=== PATIENT | male | born 1960 | race Caucasian/White ===

== ENCOUNTER → 2020-08-16 | Outpatient (REF) | payer BC ==
[2020-08-16 13:09] LABS: APPEARANCE, URINE CLEAR (CLEAR); BACTERIA, URINE AUTO NEGATIVE (NEGATIVE); BILIRUBIN, URINE AUTO NEGATIVE (NEGATIVE); BLOOD, URINE BLOOD NEGATIVE (NEGATIVE); COLOR, URINE YELLOW (YELLOW); GLUCOSE, URINE (UA) AUTO 3+ mg/dL (NEGATIVE); KETONE, URINE AUTO TRACE mg/dL (NEGATIVE); LEUKOCYTE ESTERASE, URINE AUTO NEGATIVE (NEGATIVE); NITRITE, URINE AUTO NEGATIVE (NEGATIVE); PROTEIN, URINE AUTO NEGATIVE (NEGATIVE); RBC, URINE AUTO 0 /HPF (0-3); SPECIFIC GRAVITY URINE AUTO 1.021 (1.002-1.035); SQUAMOUS EPITHELIAL CELL UR AU 0 /HPF (0-6); UROBILINOGEN, URINE AUTO 0.2 mg/dL (0.0-2.0); WBC, URINE AUTO 0 /HPF (0-3)
== END ==
LOC: M SMT 12:34
PROVIDERS: ATTEND Nurse Practitioner Women's Health
DX: Z87.440 Personal history of urinary (tract) infections (principal)

== ENCOUNTER → 2020-09-01 | Outpatient (REF) | payer BC | LOC: M SMT 17:20 | PROVIDERS: ATTEND Urology | DX: N42.32 Atypical small acinar proliferation of prostate (principal) | CPT/HCPCS: 88342; G0416 ==

== ENCOUNTER → 2020-09-01 | Outpatient (CLI) | payer BC ==
--- NOTE | 2020-09-01 15:05 | REPPI ---
INDICATION: ELEVATED PSA. COMPARISON: None. TECHNIQUE: Transrectal prostate ultrasound performed, with ultrasound guidance provided for Dr. Paz who performed ultrasound-guided biopsy. FINDINGS: Prostate measures 4.8 x 2.3 x 4.8 cm, total volume 27.5 mL. Echotexture is heterogeneous with scattered tiny cysts and calcifications. No focal mass is seen. Seminal vesicles appear symmetrical. IMPRESSION: Prostate ultrasound as above, ultrasound guidance was provided for Dr. Paz who performed ultrasound-guided biopsy of the prostate. <Electronically signed by Dillon Montes > 09/01/20 [id number]
== END ==
LOC: M SMT PRO 13:02
PROVIDERS: ATTEND Urology
DX: R97.20 Elevated prostate specific antigen [PSA] (principal)

== ENCOUNTER 2022-05-11 06:46 | Day surgery (SDC) | payer BC ==
[~2022-05-11] VITALS: Ht 182.9 cm; Wt 91.6 kg
[~2022-05-11 06:46] MED LIST: ASCO500T PO; ATOR1TAB19 PO; CALC500T52 PO; CENT1TAB PO; CINN500C15 PO; COMPTAB PO; HM C500T4 PO; LOSA50TA28 PO; METO1TAB7 PO; PROBCAP14 PO; SEMA2PEN SC; VITA1CAP4 PO; XARE20TA PO; XIGD1TAB3 PO
[2022-05-11] MEDS ORDERED: LR 1,000 ML IV SCH (07:30)
[2022-05-11] MEDS ORDERED: GENTAMICIN 100 MG in IV 1 EA IV ONE (08:00)
[2022-05-11] MEDS ORDERED: INSULIN LISPRO (NovoLOG) PER UNIT SC PRN (08:05)
[2022-05-11] MEDS ORDERED: fentaNYL 100 MCG/2 ML INJECTION As Ordered ONE (08:23)
[2022-05-11] MEDS ORDERED: MIDAZOLAM INJ 2MG/2ML VIAL As Ordered ONE (08:23)
[2022-05-11] MEDS ORDERED: LIDOCAINE 2% 100MG/5ML SDV (FOR ANES.) As Ordered ONE (08:24)
[2022-05-11] MEDS ORDERED: propofoL 200 MG/20 ML VIAL As Ordered ONE (08:24)
[2022-05-11 08:48] VITALS: BP 101/54
[2022-05-11] MEDS ORDERED: CIPR-249 PO (08:52)
== END 2022-05-11 09:20 | disposition home or self-care (01) ==
LOC: M SDC 06:46
PROVIDERS: ATTEND Urology
DX: C61 Malignant neoplasm of prostate (principal); I48.91 Unspecified atrial fibrillation; G47.30 Sleep apnea, unspecified; I10 Essential (primary) hypertension; E78.5 Hyperlipidemia, unspecified; E11.9 Type 2 diabetes mellitus without complications; Z79.899 Other long term (current) drug therapy
CPT/HCPCS: 55700; G0416; J1580; J1815; J2250; J3010

== ENCOUNTER → 2023-05-02 | Outpatient (CLI) | payer BC ==
[~2023-05-02] MED LIST changes: +CIPR-249 PO; +ISOVUE-370 76% 100ML VIAL As Ordered ONE
== END ==
LOC: M RAD 09:05
PROVIDERS: ATTEND Urology
DX: C61 Malignant neoplasm of prostate (principal)
CPT/HCPCS: 74177; 78306; A9503; Q9967

== ENCOUNTER 2023-06-07 12:45 | Inpatient (IN) | payer BC ==
[~2023-06-07] VITALS: Ht 188 cm; Wt 84.2 kg
[~2023-06-07 12:45] MED LIST changes: -ISOVUE-370 76% 100ML VIAL As Ordered ONE
[2023-07-02] MEDS ORDERED: INSU100I59 SQ (10:44)
[2023-07-02] MEDS ORDERED: XARE10TA PO (10:57)
[2023-07-16] MEDS ORDERED: B-12100010 PO (13:32)
[2023-07-16] MEDS ORDERED: METO1TAB33 PO (13:32)
[2023-07-16] MEDS ORDERED: HOME MED LIST COMPLETE! XX SCH (13:35)
[2023-07-16] MEDS ORDERED: DEXTROSE 50% 50ML SYRINGE IV PRN (16:40)
[2023-07-16] MEDS ORDERED: GLUCAGON INJ 1MG VIAL SC PRN (16:40)
[2023-07-16] MEDS ORDERED: ACETAMINOPHEN TAB 650MG DOSE (2X325MG) PO PRN (16:40)
[2023-07-16] MEDS ORDERED: GLUCOSE 4GM CHEW TABLET PO PRN (16:40)
[2023-07-16] MEDS ORDERED: ONDANSETRON 4MG 2ML VIAL IV PRN ×2 (16:40→22:40)
[2023-07-16] MEDS ORDERED: HYDROmorphone HCL 2MG/ML 1ML VIAL As Ordered ONE (18:05)
[2023-07-16] MEDS ORDERED: ROCURONIUM BROMIDE 50MG/5ML VIAL As Ordered ONE (18:05)
[2023-07-16] MEDS ORDERED: MIDAZOLAM INJ 2MG/2ML VIAL As Ordered ONE (18:05)
[2023-07-16] MEDS ORDERED: fentaNYL 100 MCG/2 ML INJECTION As Ordered ONE (18:05)
[2023-07-16] MEDS ORDERED: SUGAMMADEX SODIUM 500 MG/5 ML VIAL (BRIDION) As Ordered ONE (18:06)
[2023-07-16] MEDS ORDERED: propofoL 200 MG/20 ML VIAL As Ordered ONE (18:06)
[2023-07-16] MEDS ORDERED: LIDOCAINE 2% 100MG/5ML SDV (FOR ANES.) As Ordered ONE (18:06)
[2023-07-16] MEDS ORDERED: ONDANSETRON 4MG 2ML VIAL As Ordered ONE (18:07)
[2023-07-16] MEDS ORDERED: ACETAMINOPHEN 1000MG 100ML IV BAG As Ordered ONE (18:12)
[2023-07-16] MEDS: ceFAZolin SOD 2 GM in IV 1 EA IV ONE (19:12)
[2023-07-16] MEDS: HEPARIN SOD (PORCINE) 5000UNITS/ML 1ML VIAL/SYRINGE SQ ONE (19:18)
[2023-07-16] MEDS ORDERED: METOPROLOL 5 MG/5 ML VIAL As Ordered ONE (19:39)
[2023-07-16] MEDS: LIDOCAINE 1% SDV 30ML VIAL As Ordered ONE (22:22)
[2023-07-16] MEDS ORDERED: MORPHINE 2 MG/ML 1ML VIAL IV PRN (22:40)
[2023-07-16] MEDS ORDERED: fentaNYL 100 MCG/2 ML INJECTION IV PRN (22:40)
[2023-07-16] MEDS ORDERED: oxyCODONE 5MG TAB PO PRN (22:40)
[2023-07-16 23:24] LABS: HEMATOCRIT 44.4 % (42.0-52.0); HEMOGLOBIN 14.3 g/dl (13.5-17.5); MEAN CORPUSCULAR HEMOGLOBIN 29.4 pg (27.0-33.0); MEAN CORPUSCULAR HGB CONC 32.2 g/dl (32.0-36.5); MEAN CORPUSCULAR VOLUME 91.4 fl (80.0-96.0); PLATELET COUNT, AUTOMATED 216 10^3/uL (150-450); RED BLOOD COUNT 4.86 10^6/uL (4.30-6.10); WHITE BLOOD COUNT 9.8 10^3/uL (4.0-10.0)
[2023-07-16] MEDS: DOCUSATE SODIUM 100MG CAPSULE PO SCH (23:29)
[2023-07-16] MEDS: ATORVASTATIN 10 MG TAB PO SCH (23:29)
[2023-07-16] MEDS: HEPARIN SOD (PORCINE) 5000UNITS/ML 1ML VIAL/SYRINGE SC SCH (23:29)
[2023-07-16] MEDS: LR 1,000 ML IV SCH (23:29)
[2023-07-16] MEDS: NS 1,000 ML IV SCH (23:29)
[2023-07-16] MEDS: METOPROLOL SUCC (TopROL XL) 100MG *XL* TAB PO SCH (23:29)
[2023-07-16] MEDS: LOSARTAN 50MG TABLET PO SCH (23:29)
[2023-07-16] MEDS: INSULIN LISPRO (NovoLOG) PER UNIT SC SCH ×2 (23:29)
[2023-07-16 23:46] VITALS: BP 102/60; TEMP 97.8; O2SAT 91
[2023-07-16 23:46] LABS: BLOOD UREA NITROGEN 17 MG/DL (9-23); CALCIUM LEVEL 8.4 MG/DL (8.3-10.6); CARBON DIOXIDE LEVEL 20 MMOL/L (20-31); CHLORIDE LEVEL 106 MMOL/L (98-107); CREATININE FOR GFR 0.61 MG/DL (0.70-1.30); GLOMERULAR FILTRATION RATE > 60.0 (>49); GLUCOSE, FASTING 151 MG/DL (74-106); POTASSIUM SERUM 4.5 MMOL/L (3.5-5.1); SODIUM LEVEL 138 MMOL/L (136-145)
[2023-07-17] VITALS (27 sets, daily range): BP systolic 92–132; BP diastolic 50–76; TEMP 97.8–99.7; O2SAT 91–98
[2023-07-17] MEDS: ceFAZolin SOD 1 GM in D5W MINI-BAG PLUS 50 ML IV SCH (01:23)
[2023-07-17] MEDS: DIGOXIN INJ 0.5 MG/2 ML AMP IV SCH (01:24)
[2023-07-17] MEDS: NS 250 ML IV ONE (03:59)
[2023-07-17] MEDS: PERCOCET 5MG/325MG TAB PO PRN ×2 (04:05→07:38)
[2023-07-17 05:28] LABS: HEMATOCRIT 41.5 % (42.0-52.0); HEMOGLOBIN 13.8 g/dl (13.5-17.5); MEAN CORPUSCULAR HGB CONC 33.3 g/dl (32.0-36.5); MEAN CORPUSCULAR VOLUME 90.2 fl (80.0-96.0); PLATELET COUNT, AUTOMATED 198 10^3/uL (150-450); WHITE BLOOD COUNT 11.3 10^3/uL (4.0-10.0)
[2023-07-17 05:57] LABS: ALKALINE PHOSPHATASE 49 U/L (46-116); ALT/SGPT 26 U/L (7.0-40); AST/SGOT 21 U/L (<34); BILIRUBIN,TOTAL 0.7 MG/DL (0.3-1.2); BLOOD UREA NITROGEN 17 MG/DL (9-23); CALCIUM LEVEL 8.1 MG/DL (8.3-10.6); CALCIUM LEVEL 8.3 MG/DL (8.3-10.6); CARBON DIOXIDE LEVEL 21 MMOL/L (20-31); CHLORIDE LEVEL 106 MMOL/L (98-107); CREATININE FOR GFR 0.61 MG/DL (0.70-1.30); GLOMERULAR FILTRATION RATE > 60.0 (>49); GLUCOSE, FASTING 139 MG/DL (74-106); GLUCOSE, FASTING 140 MG/DL (74-106); MAGNESIUM LEVEL 1.6 MG/DL (1.8-2.4); PHOSPHORUS LEVEL 3.8 MG/DL (2.4-5.1); POTASSIUM SERUM 4.5 MMOL/L (3.5-5.1); SODIUM LEVEL 137 MMOL/L (136-145); SODIUM LEVEL 138 MMOL/L (136-145); TOTAL PROTEIN 5.1 G/DL (5.7-8.2)
[2023-07-17] MEDS: MAG SULF 1GM/100ML (MAG RUN) 1 GM in IV 1 EA IV SCH (07:27)
[2023-07-17] MEDS: NICOTINE 14 MG/24 HR TRANSDERMAL TD SCH (08:16)
[2023-07-17] MEDS: LEVEMIR (INSULIN DETEMIR) 1 UNITS/0.01ML SC SCH (08:17)
[2023-07-17] MEDS: ASCORBIC ACID 500 MG TAB PO SCH (09:19)
[2023-07-17] MEDS: LACTOBACILLUS ACIDOPHILUS CAP (BACID) PO SCH (09:19)
[2023-07-17] MEDS ORDERED: COLA100C5 PO (12:34)
[2023-07-17] MEDS ORDERED: PERCOCET PO (12:34)
[2023-07-17] MEDS ORDERED: CIPR-249 PO (12:34)
== END 2023-07-17 14:02 | disposition home or self-care (01) | DRG 484 ==
LOC: M OR 07-16 12:54 → M ICU 07-16 23:30
PROVIDERS: ADMIT Urology; ATTEND Urology
PROC: 8E0W4CZ Robotic Assisted Procedure of Trunk Region, Percutaneous Endoscopic Approach (ICD-10-PCS; 2023-07-16)
PROC: 0VT04ZZ Resection of Prostate, Percutaneous Endoscopic Approach (ICD-10-PCS; principal; 2023-07-16 14:55)
PROC: B246ZZZ Ultrasonography of Right and Left Heart (ICD-10-PCS; 2023-07-17)
DX: C61 Malignant neoplasm of prostate (principal); I48.91 Unspecified atrial fibrillation; I27.20 Pulmonary hypertension, unspecified; I10 Essential (primary) hypertension; E11.9 Type 2 diabetes mellitus without complications; G47.33 Obstructive sleep apnea (adult) (pediatric); I97.89 Other postprocedural complications and disorders of the circulatory system, not elsewhere classified; E78.5 Hyperlipidemia, unspecified; F17.210 Nicotine dependence, cigarettes, uncomplicated; Z79.01 Long term (current) use of anticoagulants; Z79.84 Long term (current) use of oral hypoglycemic drugs; Z79.899 Other long term (current) drug therapy

== ENCOUNTER → 2023-12-26 | Outpatient (CLI) | payer BC ==
[~2023-12-26] MED LIST changes: +B-12100010 PO; +COLA100C5 PO; +INSU100I59 SQ; +METO1TAB33 PO; +PERCOCET PO; +XARE10TA PO
== END ==
LOC: M ONCR 08:59
PROVIDERS: ATTEND General Practice
DX: C61 Malignant neoplasm of prostate (principal); N39.3 Stress incontinence (female) (male); F17.210 Nicotine dependence, cigarettes, uncomplicated; Z79.4 Long term (current) use of insulin; Z79.899 Other long term (current) drug therapy; Z80.42 Family history of malignant neoplasm of prostate; Z90.49 Acquired absence of other specified parts of digestive tract

== ENCOUNTER → 2024-01-25 | Outpatient (CLI) | payer BC | LOC: M ONCR 08:29 | PROVIDERS: ATTEND General Practice | DX: R32 Unspecified urinary incontinence (principal) ==

== ENCOUNTER 2024-02-06 09:16 | Outpatient (RCR) | payer BC | END 2024-02-23 | LOC: M ONCR 09:16 | PROVIDERS: ATTEND General Practice | DX: Z51.0 Encounter for antineoplastic radiation therapy (principal); C61 Malignant neoplasm of prostate ==

== ENCOUNTER → 2024-03-25 | Outpatient (RCR) | payer BC | LOC: M ONCR 02-26 10:21 | PROVIDERS: ATTEND General Practice | DX: Z51.0 Encounter for antineoplastic radiation therapy (principal); C61 Malignant neoplasm of prostate ==

== ENCOUNTER → 2024-04-25 | Outpatient (RCR) | payer BC | LOC: M ONCR 03-27 10:26 | PROVIDERS: ATTEND General Practice | DX: Z51.0 Encounter for antineoplastic radiation therapy (principal); C61 Malignant neoplasm of prostate ==

== ENCOUNTER 2024-04-28 10:27 | Outpatient (RCR) | payer BC | END 2024-05-23 | LOC: M ONCR 10:27 | PROVIDERS: ATTEND General Practice | DX: Z51.0 Encounter for antineoplastic radiation therapy (principal); C61 Malignant neoplasm of prostate ==

== ENCOUNTER → 2024-07-18 | Outpatient (CLI) | payer BC ==
[~2024-07-18] MED LIST changes: +OXYB10TA23 PO
[2024-07-18 13:27] LABS: PROSTATIC SPECIFIC AG MONITOR 0.04 NG/ML (< 4.00)
== END ==
LOC: M LAB 12:13
PROVIDERS: ATTEND General Practice
DX: C61 Malignant neoplasm of prostate (principal)

== ENCOUNTER → 2024-07-25 | Outpatient (CLI) | payer BC | LOC: M ONCR 10:49 | PROVIDERS: ATTEND General Practice | DX: C61 Malignant neoplasm of prostate (principal); R53.83 Other fatigue; N39.3 Stress incontinence (female) (male); Z90.79 Acquired absence of other genital organ(s); Z92.3 Personal history of irradiation; F17.210 Nicotine dependence, cigarettes, uncomplicated; Z79.01 Long term (current) use of anticoagulants; Z79.4 Long term (current) use of insulin; Z79.899 Other long term (current) drug therapy ==

== ENCOUNTER → 2024-10-27 | Outpatient (CLI) | payer BC ==
[~2024-10-27] MED LIST changes: +DIPH1TAB81 PO; +OXYB15TA14 PO
== END ==
LOC: M ONCR 10:57
PROVIDERS: ATTEND General Practice
DX: C61 Malignant neoplasm of prostate (principal); R19.7 Diarrhea, unspecified; N39.3 Stress incontinence (female) (male); R53.83 Other fatigue; Z79.818 Long term (current) use of other agents affecting estrogen receptors and estrogen levels; Z90.79 Acquired absence of other genital organ(s); Z92.3 Personal history of irradiation; Z87.891 Personal history of nicotine dependence; Z79.01 Long term (current) use of anticoagulants; Z79.899 Other long term (current) drug therapy; Z79.84 Long term (current) use of oral hypoglycemic drugs